=== PATIENT | male | born 1975 | race Caucasian/White ===

== ENCOUNTER 2018-04-01 13:10 | Emergency (ER) | payer MEDICAID, SELFPAY ==
[2018-04-01 13:11] VITALS: BP 164/102; PULSE 102; RESP 16; TEMP 36.8; O2SAT 99; BMI 39.2
--- NOTE | 2018-04-01 13:48 | ED.VISSUMM ---
- ER Visit Summary Date of Service: 04/01/18 Chief Complaint: [] Asking for mental health assessment related to depression and ADHD History of Present Illness: The patient is a 43 M [] history of those conditions, he is not seeing anyone regularly, he has no provider, he recently had some work problems which she had to hire a trimmer and reinforcer, the [facility] apparently found some way to refer him to some unspecified provider in the [place] area his appointment is not until April 18 he came to the emergency department asking for a mental health assessment that can be done sooner he denies being suicidal or homicidal states his depression is in the ADHD are such as mind is constantly racing he can focus on tasks. No fever no cough no chest pain no abdominal pain Physical Examination: [] He is awake and alert his vital signs are within normal range she is a large gentleman head neck chest unremarkable the abdomen soft nontender upper lower extremities unremarkable neurologically he is awake moving all 4 there is no psychomotor agitation or delirium, he is appropriate and cooperative asking and answering appropriately, he did provide some type of appointment slip related to the counselor or provider he is to see on 18 april. At that I have explained to him that we will have mental health services staff, and do an assessment and see how he can be provided additional assistance screening labs are obtained these will be checked on the chart Test Results: [] Emergency Department Course and Treatment: [] Treatment Plan: [] Disposition: [] Pending evaluation by mental health services Impression: [] Depression and exacerbation of ADHD no suicidal homicidal ideation This note was generated with [employer] dictation software. It may contain incorrect words, spelling, and punctuation that were not noted in review of the chart prior to signing ED Disposition - Plan for ED Patient: Chief Complaint: Depression Referrals: NOT,DEFINED [Primary Care Provider] -
[2018-04-01 13:54] LABS: Amphetamine Urine VISTA NEGATIVE (<1000 ng/mL); Barbiturate Urine VISTA NEGATIVE (< 200 ng/mL); Benzodiazepine Urine VISTA NEGATIVE (< 200 ng/mL); Cocaine Urine VISTA NEGATIVE (< 300 ng/mL); Ecstacy Urine VISTA NEGATIVE (< 500 ng/mL); Methadone Urine VISTA NEGATIVE (< 300 ng/mL); PCP Urine VISTA NEGATIVE (< 25 ng/mL); THC Urine VISTA POSITIVE (< 50 ng/mL); Vista UDS pH Range 6
[2018-04-01 14:09] LABS: Absolute Neutrophil Count 3.9 X10^3/uL (2.0-7.7); Basophil# 0.04 X10^3/uL; Basophil% 0.5 % (0-1); Eosinophil# 0.14 X10^3/uL; Eosinophils% 1.9 % (0-5); Hematocrit 41.3 % (40-54); Hemoglobin 14.2 g/dl (13.0-16.5); Lymphocyte % 34.2 % (19-41); Mean Corp Hgb Conc 34.4 g/gl (32-36); Mean Corpuscular Hgb 30.3 pg (27.0-32.0); Mean Corpuscular Volume 88.2 fL (80-94); Mean Platelet Vol. 10.1 fl (6.2-12.0); Monocyte# 0.69 X10^3/uL; Monocyte% 9.4 % (0-10); Neutrophil # 3.94 X10^3/uL (2.7-7.7); Neutrophil % 53.9 % (47-70); POSITIVE COUNT NO; POSITIVE DIFFERENTIAL NO; POSITIVE MORPHOLOGY NO; Platelet Count 202 K/mm3 (150-450); RBC Distribution Width CV 12.7 % (11.6-14.6); RBC Distribution Width SD 40.5 fl (35.1-43.9); Red Blood Count 4.68 M/mm3 (4.6-6.2); White Blood Count 7.3 K/mm3 (4.4-11.0)
[2018-04-01 14:20] LABS: Anion Gap 6 (5-15); BUN 14 mg/dL (7-18); Chloride 105 mmol/L (98-107); Creatinine, Serum 1.08 mg/dL (0.70-1.30); EST Glomerular Filtration Rate 80 mL/min (>60); Est Glom Filt Rate - Afr Amer 97 mL/min (>60); Estimated Creatinine Clearance 95.87 ml/min; Glucose 90 mg/dL (74-106); Potassium 3.9 mmol/L (3.5-5.1); Sodium Level 140 mmol/L (136-145)
[2018-04-01 15:41] VITALS: BP 153/107; PULSE 80; O2SAT 98
[2018-04-01 17:45] VITALS: BP 165/95; PULSE 87; RESP 16; O2SAT 99
[2018-04-01 18:23] VITALS: RESP 16
--- NOTE | 2018-04-01 18:45 | ED.RN ---
[facility]. cleared pt with plan for outpatient treatment/counseling. dc instructins reviewed with pt. pt belongings returned and pt getting dressed
--- NOTE | 2018-04-01 18:46 | ED.VISSUMM ---
- ER Visit Summary Date of Service: 04/01/18 Chief Complaint: [] History of Present Illness: The patient is a 43 M [] Physical Examination: [] Test Results: [] Emergency Department Course and Treatment: [] Treatment Plan: [] Disposition: [] Impression: [] This note was generated with [employer] dictation software. It may contain incorrect words, spelling, and punctuation that were not noted in review of the chart prior to signing ED Disposition - Plan for ED Patient: Disposition: Home or Assisted Living Chief Complaint: Depression Diagnosis: Depression Instructions: ED Depression Referrals: NOT,DEFINED [NON-STAFF] -
[2018-04-01 18:54] VITALS: BP 173/92; PULSE 61; RESP 16; TEMP 36.7; O2SAT 99
== END 2018-04-01 18:59 | disposition home or self-care (01) ==
PROVIDERS: Emergency Provider Emergency Medicine
DX: F32.9 Major depressive disorder, single episode, unspecified (principal); F90.9 Attention-deficit hyperactivity disorder, unspecified type
CPT/HCPCS: 36415; 80048; 80307; 80320; 85025; 99282; G0480